=== PATIENT | female | born 1990 | race American Indian/Alaskan Native ===

== ENCOUNTER 2020-10-27 10:20 | Emergency (ER) | payer SELFPAY ==
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
[2020-10-27 11:21] VITALS: BP 136/80
== END 2020-10-27 11:39 | disposition home or self-care (01) ==
LOC: ED 10:20
DX: L02.212 Cutaneous abscess of back [any part, except buttock and flank] (principal); Z79.899 Other long term (current) drug therapy
CPT/HCPCS: 99281

== ENCOUNTER 2021-04-07 22:39 | Emergency (ER) | payer SELFPAY | END 2021-04-08 01:14 | disposition left against medical advice (07) | LOC: EDSEX → ED 22:39 | DX: L02.32 Furuncle of buttock (principal); Z53.21 Procedure and treatment not carried out due to patient leaving prior to being seen by health care provider ==

== ENCOUNTER 2021-09-29 22:39 | Emergency (ER) | payer SELFPAY | END 2021-09-30 00:35 | disposition left against medical advice (07) | LOC: ED 22:39 | DX: M54.2 Cervicalgia (principal); Z53.21 Procedure and treatment not carried out due to patient leaving prior to being seen by health care provider ==

== ENCOUNTER 2021-10-01 09:21 | Emergency (ER) | payer SELFPAY ==
[2021-10-01] MEDS ORDERED: HYDROcodone/ACETAMINOPHEN 5-325 MG TAB PO ONE (11:16)
[2021-10-01] MEDS ORDERED: CYCLOBENZAPRINE 10 MG TAB PO ONE (11:16)
[2021-10-01] MEDS ORDERED: IBUPROFEN 800 MG TAB PO ONE (11:16)
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
[2021-10-01 12:09] VITALS: BP 128/71
== END 2021-10-01 12:08 | disposition home or self-care (01) ==
LOC: ED 09:21
DX: M54.6 Pain in thoracic spine (principal); V87.7XXA Person injured in collision between other specified motor vehicles (traffic), initial encounter; Y93.89 Activity, other specified; Y92.488 Other paved roadways as the place of occurrence of the external cause; Y99.8 Other external cause status
CPT/HCPCS: 99282